=== PATIENT | female | born 1985 | race Caucasian/White ===

== ENCOUNTER 2018-03-22 05:44 | Day surgery (SDC) | payer BC ==
[~2018-03-22] VITALS: Ht 162.6 cm; Wt 62.6 kg
[~2018-03-22 05:44] MED LIST: ACETAMINOPHEN-1 EAC1 PO; ADVIL200 MG PO; IBUPROFEN800 MG PO; PRENATAL TABLE1 EACH PO; XANAX0.25 MG PO
[2018-03-22 10:55] VITALS: BP 92/44
[2018-03-22 11:51] VITALS: BP 108/58
[2018-03-22 13:32] VITALS: BP 103/59
== END 2018-03-22 13:32 | disposition home or self-care (01) ==
LOC: SDC 05:44
DX: N94.6 Dysmenorrhea, unspecified (principal); N80.9 Endometriosis, unspecified; N97.9 Female infertility, unspecified; K66.0 Peritoneal adhesions (postprocedural) (postinfection); Z88.0 Allergy status to penicillin; Z88.5 Allergy status to narcotic agent
CPT/HCPCS: 88305; J0131; J0330; J0690; J1100; J1170; J1885; J2250; J2405; J2550; J2765; J3010; Q0175